=== PATIENT | male | born 1975 | race African-American/Black ===

== ENCOUNTER 2024-02-02 15:34 | Emergency (ER) | payer SELFPAY ==
[2024-02-02] MEDS ORDERED: Ibuprofen 200 MG TAB ONE (16:04)
[2024-02-02] MEDS ORDERED: Acetaminophen 325 MG TAB ONE (16:04)
== END 2024-02-02 16:23 | disposition home or self-care (01) ==
LOC: BURERS 15:34
DX: S93.402A Sprain of unspecified ligament of left ankle, initial encounter (principal); S83.92XA Sprain of unspecified site of left knee, initial encounter; X50.0XXA Overexertion from strenuous movement or load, initial encounter